=== PATIENT | male | born 1970 | race Caucasian/White ===

== ENCOUNTER 2019-10-24 16:34 | Emergency (ER) | payer OTHER ==
[2019-10-24] MEDS ORDERED: Acetaminophen/HYDROcodone 325-10 MG Tab PO ONE (16:35)
[2019-10-24] MEDS ORDERED: HYDROmorphone 1 MG/ML Syringe IVPUSH ONE (16:48)
[2019-10-24] MEDS ORDERED: HYDROmorphone 1 MG/ML Syringe ONE (16:49)
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
[2019-10-24] MEDS ORDERED: fentaNYL 100 MCG/2 ML SDV IVPUSH ONE (17:16)
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
[2019-10-24 18:02] VITALS: BP 138/80; PULSE 75
[2019-10-24] MEDS ORDERED: Acetaminophen/HYDROcodone 325-10 MG Tab ONE (18:14)
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
== END 2019-10-24 18:36 | disposition home or self-care (01) ==
LOC: DL.ED 16:34
DX: S22.32XA Fracture of one rib, left side, initial encounter for closed fracture (principal); V00.131A Fall from skateboard, initial encounter
CPT/HCPCS: 71046; 71100; 96374; 99283; A9270; J1170

== ENCOUNTER 2024-01-18 14:13 | Emergency (ER) | payer OTHER ==
[2024-01-18 14:35] LABS: BASOPHILS PERCENT AUTO 0.4 % (0.0-1.0); EOSINOPHILS PERCENT AUTO 1.5 % (1.0-3.0); HEMATOCRIT 44.7 % (40.0-54.0); HEMOGLOBIN 15.6 g/dL (14.0-18.0); LYMPHOCYTES PERCENT AUTO 21.7 % (20.5-50.1); MEAN CORPUSCULAR HEMOGLOBIN 33.1 pg (27.0-34.0); MEAN CORPUSCULAR HGB CONC 34.9 g/dL (33.0-35.0); MEAN CORPUSCULAR VOLUME 94.9 fL (80-100); MONOCYTES PERCENT AUTO 4.6 % (2-8); NEUTROPHILS PERCENT AUTO 71.8 % (42.2-75.2); PLATELET COUNT,PLT 235 10^3/uL (150-450); RED BLOOD CELL COUNT 4.71 10^6/uL (4.6-6.2); WHITE BLOOD CELL COUNT,WBC 10.6 10^3/uL (5.0-10.0)
[2024-01-18] MEDS: Sodium Chloride 0.9% 10 ML Syringe FLUSH PRN (14:35)
[2024-01-18 15:04] LABS: ALANINE AMINOTRANSFERASE,ALT 34 U/L (16-63); ALBUMIN 3.8 g/dL (3.4-5.0); ALKALINE PHOSPHATASE 47 U/L (46-116); ANION GAP 17.3 mEq/L (7-13); ASPARTATE AMNIOTRANSFERASE,AST 26 U/L (15-37); BILIRUBIN TOTAL 0.7 mg/dL (0.2-1.0); BLOOD UREA NITROGEN,BUN 16 mg/dL (7-18); BUN/CREATININE RATIO 13.1 (No establ ref range); CALCIUM 9.3 mg/dL (8.5-10.1); CARBON DIOXIDE,CO2 25 mmol/L (21-32); CHLORIDE,CL 102 mmol/L (98-107); CREATININE 1.22 mg/dL (0.70-1.30); EST CRCL DRUG DOSING (CG) 75.44 mL/min; GLUCOSE RANDOM 142 mg/dL (70-99); POTASSIUM,K 4.3 mmol/L (3.5-5.1); PROTEIN TOTAL,TP 7.6 g/dL (6.4-8.2); SODIUM,NA 140 mmol/L (136-145); TSH ULTRASENSITIVE 1.13 uIU/mL (0.36-3.74)
[2024-01-18 15:05] LABS: ESTIMATED GFR 71 mL/min (>=60)
[2024-01-18 15:06] LABS: C-REACTIVE PROTEIN < 0.50 ng/dL (<=0.50)
[2024-01-18] MEDS: Iopamidol 755 Mg/ML 100 ML Bottle IVPUSH ONE (15:22)
[2024-01-18] MEDS: Aspirin 81 MG Tab.Chew PO ONE (15:29)
[2024-01-18 15:34] VITALS: BP 139/107; PULSE 82
== END 2024-01-18 16:14 | disposition home or self-care (01) ==
LOC: DL.ED 14:13
DX: I26.99 Other pulmonary embolism without acute cor pulmonale (principal); Z88.0 Allergy status to penicillin
CPT/HCPCS: 36415; 71275; 80053; 83735; 84443; 84484; 85025; 86140; 93005; 99284; A9270; Q9967; J3490